=== PATIENT | female | born 1995 | race Caucasian/White ===

== ENCOUNTER 2019-10-17 23:01 | Emergency (ER) | payer OTHER, SELFPAY ==
--- NOTE | ~2019-10-17 | XR_ITS ---
EXAMINATION: XR foot RT min 3V DATE: 10/17/2019 23:59 INDICATION: Blunt trauma with pain at the base of the right first-third metatarsals. TECHNIQUE: Dorsoplantar, two oblique and lateral views of the right foot were obtained. COMPARISON: None. FINDINGS: Alignment is normal. No fracture. Joint spaces are normal. Soft tissues are unremarkable. IMPRESSION: 1. Negative right foot radiographs. Reviewed, dictated and finalized at location A.
[2019-10-17 23:04] VITALS: BP 106/69; PULSE 74; RESP 18; TEMP 36.8; O2SAT 100
--- NOTE | 2019-10-17 23:25 | ED.LOWEXIN ---
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 Denies other injuries. Related Data Home Medications Medication Instructions Recorded Confirmed No Home Medications 10/17/19 10/17/19 Allergies Allergy/AdvReac Type Severity Reaction Status Date / Time No Known Allergies Allergy Verified 10/17/19 23:06 Review of Systems Review of Systems: Narrative: CONSTITUTIONAL: Denies fever, chills, or sweats. EYES: Denies visual changes, redness, or discharge. ENT: Denies rhinorrhea, congestion, sore throat, or otalgia. CARDIOVASCULAR: Denies chest pain, palpitations, or edema. RESPIRATORY: Denies cough or dyspnea. GASTROINTESTINAL: Denies abdominal pain, nausea, vomiting, or diarrhea. GENITOURINARY: Denies dysuria or hematuria. SKIN: Denies rash or itching. MUSCULOSKELETAL: Denies back pain, joint pain, or myalgia. NEUROLOGIC: Denies headache, numbness, or weakness. PSYCHIATRIC: Denies anxiety or depression. [facility] Social History Social History (Updated 10/17/19 @ 23:29 by Maurice Infante MD) Smoking status: Light tobacco smoker Alcohol intake: unknown Substance use: unknown Living arrangements: alone Occupation/Education: occupation Exam Narrative: Exam Narrative: General appearance: Well-developed, well-nourished Skin: Normal color Head: Normocephalic, nontraumatic Chest and respiratory: Airway patent, no respiratory distress, no accessory muscle use Heart: Regular rate/rhythm Vascular: Normal peripheral pulses, normal capillary refill. Musculoskeletal: Normal range of motion, nontender back, diffuse tenderness right foot dorsally. No deformity, no swelling Neurologic: Alert and oriented ?3, THIRD MATE is normal as tested, no gross motor deficit Course Course Emergency Course: Stable Vital Signs Vital signs: Vital Signs Temperature 36.8 C 10/17/19 23:04 Pulse Rate 74 10/17/19 23:04 Respiratory Rate 18 10/17/19 23:04 Blood Pressure 106/69 10/17/19 23:04 Pulse Oximetry 100 10/17/19 23:04 Temperature 36.8 C 10/17/19 23:04 Pulse Rate 74 10/17/19 23:04 Respiratory Rate 18 10/17/19 23:04 Blood Pressure 106/69 10/17/19 23:04 Pulse Oximetry 100 10/17/19 23:04 MDM - Extremity Injury (Lower) MDM Narrative Medical decision making narrative: X-ray right foot ordered. Motrin and Tylenol ordered. Further plan to follow Differential Diagnosis Differential diagnosis: Likely fracture of toe and other (Foot fracture, foot contusion) Imaging Data Radiologist's impression: X-ray right foot showed no fracture. Critical Care Time Critical Care Time Critical Care Time: No Discharge Plan Discharge Clinical Impression: Contusion of foot, right Qualifiers: Encounter type: initial encounter Qualified Code(s): S90.31XA - Contusion of right foot, initial encounter Patient Disposition: Home, Self-Care Condition: Stable Instructions: Foot Contusion (ED) Additional Instructions: Discharge instructions, keep foot elevated, ice pack 20 minutes/h for the next 24 hours, crutches, Tylenol/ibuprofen as
--- NOTE | 2019-10-17 23:42 | PC.NURSE ---
pt refusing Motrin and Tylenol.
[2019-10-18 00:20] VITALS: BP 129/91; PULSE 79; RESP 17; O2SAT 100
== END 2019-10-18 00:22 | disposition home or self-care (01) ==
PROVIDERS: Emergency Provider Emergency Medicine
DX: S90.31XA Contusion of right foot, initial encounter (principal); F17.200 Nicotine dependence, unspecified, uncomplicated; W20.8XXA Other cause of strike by thrown, projected or falling object, initial encounter
CPT/HCPCS: 73630; 99283

== ENCOUNTER 2020-01-16 16:18 | Emergency (ER) | payer OTHER, BC, MEDICAID, SELFPAY ==
--- NOTE | ~2020-01-16 | XR_ITS ---
EXAMINATION: XR toe 1st RT min 2V EXAM DATE: 01/16/2020 17:22 INDICATION: Injury, right 1st toe pain. TECHNIQUE: Right 1st toe frontal, lateral and oblique projections obtained and reviewed. Comparison is made to prior examination from 10/17/2019. FINDINGS: There are no acute right 1st toe fractures or dislocations identified. There is no subcuta neous gas. The soft tissue is unremarkable. There are no radiopaque foreign bodies. IMPRESSION: Unremarkable right 1st toe. I printed out this report and handed to Raoul Dunn MD at 01/16/2020 17:24 HAND FRETTED INSTRUMENT MAKER. I'm unable to sign it off at this time. Reviewed, dictated and finalized at location A. FRETTED INSTRUMENT MAKER IMPRESSION: Unremarkable right 1st toe. I printed out this report and handed to Raoul Dunn MD at 01/16/2020 17: 24 HAND FRETTED INSTRUMENT MAKER. I'm unable to sign it off at this time.
[2020-01-16 16:36] VITALS: BP 124/69; PULSE 81; RESP 18; TEMP 36.5; O2SAT 100
--- NOTE | 2020-01-16 17:26 | PC.NURSE ---
xray back with no fractures. resting in room. alert. oriented. waiting for further orders from MD vs disposition.
--- NOTE | 2020-01-16 17:46 | ED.LOWEXIN ---
HPI - Extremity Injury (Lower) General Chief Complaint: Extremity Injury, Lower Stated Complaint: Right big toe injury Time Seen by Provider: 01/16/20 16:43 History of Present Illness HPI Narrative: Patient is a 24-year-old female who presents ER with right great toe pain. She ran over her toe with a forklift pallet irrigation equipment remover. It became more purple and swollen over the last 2 days. She is able to bear weight but has lot of pain with palpation. She also reports that has a throbbing numbness. Related Data Home Medications Medication Instructions Recorded Confirmed No Home Medications 10/17/19 01/16/20 Allergies Allergy/AdvReac Type Severity Reaction Status Date / Time No Known Allergies Allergy Verified 01/16/20 16:38 Review of Systems Musculoskeletal: Musculoskeletal: Reports arthralgias and Denies joint swelling Comments: Great toe pain Neurologic: Denies focal weakness and Reports numbness PMFSH Past Medical History Medical History (Updated 01/16/20 @ 17:49 by Raoul Dunn MD) Healthy female adult Surgical History Surgical History (Updated 01/16/20 @ 17:47 by Raoul Dunn MD) No history of previous surgery Social History Social History (Updated 10/17/19 @ 23:29 by Maurice Infante MD) Smoking status: Light tobacco smoker Alcohol intake: unknown Substance use: unknown Exam Narrative: Exam Narrative: GENERAL: Well-appearing, well-nourished, and in no acute distress. HEAD: Normocephalic, atraumatic. EXTREMITIES: Normal range of motion. Tender palpation over the distal phalanx of the right great toe. No tenderness at the joints. Slight bruising under the toenail but no subungual hematoma. SKIN: Warm, dry, no rash. NEURO: No focal deficits. Alert and oriented x3. Course Course Emergency Course: No fracture. Discharge home. Vital Signs Vital signs: Vital Signs Temperature 97.7 F 01/16/20 16:36 Pulse Rate 81 01/16/20 16:36 Respiratory Rate 18 01/16/20 16:36 Blood Pressure 124/69 01/16/20 16:36 Pulse Oximetry 100 01/16/20 16:36 Temperature 97.7 F 01/16/20 16:36 Pulse Rate 81 01/16/20 16:36 Respiratory Rate 18 01/16/20 16:36 Blood Pressure 124/69 01/16/20 16:36 Pulse Oximetry 100 01/16/20 16:36 MDM - Extremity Injury (Lower) Medical Records Medical records narrative: ITS Impressions Toe X-Ray 01/16/20 17:06 IMPRESSION: Unremarkable right 1st toe. I printed out this report and handed to Raoul Dunn MD at 01/16/2020 17:24 CASING IN LINE SETTER. I'm unable to sign it off at this time. Discharge Plan Discharge Clinical Impression: Contusion of toe Patient Disposition: Home, Self-Care Condition: Stable Instructions: Foot Contusion (ED) Additional Instructions: Return to the ER if you have chest pain or shortness of breath, you suffer new injury, you have additional concerns. Take Tylenol or ibuprofen as needed for pain. Prescriptions: No Action No Home Medications RF: 0 Follow-up/Referrals: PHYSICIAN,STONECUTTER HAND [Primary Care Provider] -
== END 2020-01-16 17:57 | disposition home or self-care (01) ==
PROVIDERS: Emergency Provider Emergency Medicine; Referring Provider Emergency Medicine
DX: S90.111A Contusion of right great toe without damage to nail, initial encounter (principal); F17.200 Nicotine dependence, unspecified, uncomplicated; W24.0XXA Contact with lifting devices, not elsewhere classified, initial encounter
CPT/HCPCS: 73660; 99283

== ENCOUNTER 2021-06-25 06:43 | Outpatient (CLI) | payer OTHER, SELFPAY ==
--- NOTE | ~2021-06-25 | MR_ITS ---
EXAMINATION: MR ankle LT wo con DATE: 06/25/2021 08:12 INDICATION: Calcaneal spur. Calcific tendinitis. TECHNIQUE: Magnetic resonance imaging (MRI) of the left ankle was performed without intravenous contr ast. Sequences included sagittal, coronal, and axial proton-density weighted fast spin echo without a nd with fat saturation. COMPARISON: None. FINDINGS: Medial ankle ligaments: Deep and superficial deltoid ligaments as well as the spring ligament are normal. Lateral ankle ligaments: The anterior and posterior inferior tibiofibular ligaments are normal. The anterior talofibular, calc aneofibular and posterior talofibular ligaments are normal. Tendons: Prominent fusiform thickening of the Achilles tendon centered approximately 5 cm proximal to the calc aneal insertion consistent with mild tendinosis without discrete tear. No surrounding peritendinitis. The peroneus longus and brevis tendons are normal. The tibialis anterior and extensor hallucis longu s and extensor digitorum longus tendons are normal. The tibialis posterior, flexor digitorum longus a nd flexor hallucis longus tendons are normal. Plantar fascia: Plantar aponeurosis is normal. Bones/other: Bone alignment is normal with normal marrow signal throughout. No reactive edema, fracture or patholo gic marrow replacing process. Joint spaces are normal. Fluid: Physiologic amount fluid in the joint spaces. No tenosynovitis, bursitis or other abnormal fluid maritza ections. IMPRESSION: 1. Mild Achilles tendinosis without discrete tear or peritendinitis. Reviewed, dictated and finalized at location A.
== END 2021-06-25 06:44 | disposition home or self-care (01) ==
LOC: CHSIMG 06:45
DX: M77.32 Calcaneal spur, left foot (principal); R52 Pain, unspecified
CPT/HCPCS: 73721